=== PATIENT | female | born 1980 | race Caucasian/White ===

== ENCOUNTER 2019-10-14 10:03 | Emergency (ER) | payer MEDICAID, OTHER ==
[~2019-10-14] VITALS: Ht 165.1 cm; Wt 68.2 kg
[2019-10-14 10:57] LABS: BASOPHILS # (AUTO) 0.1 X10'3 (0-0.2); BASOPHILS % (AUTO) 0.8 % (0-1); EOSINOPHILS # (AUTO) 0.1 X10'3 (0-0.9); EOSINOPHILS % (AUTO) 1.2 % (0-6); HEMATOCRIT 43.5 % (35.0-45.0); HEMOGLOBIN 14.8 g/dl (12.0-16.0); LYMPHOCYTES % (AUTO) 18.3 % (21-51); MEAN CORPUSCULAR HEMOGLOBIN 32.2 PG (27.0-31.0); MEAN CORPUSCULAR HGB CONC 34.1 g/dL (33.0-36.5); MEAN CORPUSCULAR VOLUME 94.3 FL (78-98); MEAN PLATELET VOLUME 8.5 FL (7.4-10.4); MONOCYTES # (AUTO) 0.6 X10'3 (0-0.9); MONOCYTES % (AUTO) 5.5 % (2-12); NEUTROPHILS # (AUTO) 8.3 X10'3 (1.8-7.7); NEUTROPHILS % (AUTO) 74.2 % (42-75); PLATELET COUNT 316 X10'3 (140-440); RED BLOOD COUNT 4.61 X10'6 (4.20-5.60); RED CELL DISTRIBUTION WIDTH 13.4 % (11.5-14.5); WHITE BLOOD COUNT 11.2 X10'3 (4.5-11.0)
[2019-10-14 10:57] LABS: COLOR,URINE STRAW (Yellow); GLUCOSE, URINE NEGATIVE (Neg); KETONES,URINE NEGATIVE (Neg); LEUKOCYTE ESTERASE ,URINE NEGATIVE (Neg); NITRITES, URINE NEGATIVE (Neg); OCCULT BLOOD,URINE MODERATE (Neg); PROTEIN,URINE NEGATIVE (Neg); URINE HCG NEGATIVE (NEG); UROBILINOGEN,URINE 0.2 E.U/dL (0.2-1.0)
[2019-10-14] MEDS ORDERED: normal saline 1000ML IV soln IVB ONE (11:15)
[2019-10-14] MEDS ORDERED: ketorolac tromethamine 15mg/ml inj. IV ONE (11:15)
[2019-10-14 11:17] LABS: ALANINE AMINOTRANSFERASE 21 U/L (12-78); ALBUMIN/GLOBULIN RATIO 1.1 (1.1-1.5); ALKALINE PHOSPHATASE 126 IU/L (46-116); ANION GAP 9 (8-16); ASPARTATE AMINO TRANSFERASE 25 U/L (10-37); BILIRUBIN,TOTAL 0.3 MG/DL (0.1-1.0); BLOOD UREA NITROGEN 12 MG/DL (7-18); BUN/CREATININE RATIO 12.6 (6.6-38.0); CALCIUM 9.6 MG/DL (8.5-10.1); CHLORIDE 103 MMOL/L (99-107); CREATININE 0.95 MG/DL (0.40-0.90); GLUCOSE 105 MG/DL (70-104); LIPASE 160 U/L (73-393); SODIUM 136 MMOL/L (135-145); TOTAL CARBON DIOXIDE 23.9 MMOL/L (24-32); TOTAL PROTEIN 7.8 G/DL (6.4-8.2); eGFR 65 ML/MIN
[2019-10-14 11:24] LABS: CLARITY,URINE SLIGHTLY CLOUDY (Clear); UA COLLECTION TYPE CLN CATCH MIDSTREAM
[2019-10-14 11:25] LABS: BACTERIA,URINE NONE SEEN /HPF (Neg); SQUAMOUS EPITHELIAL CELL,UR MODERATE /LPF (FEW); WBC,URINE 0-4 /HPF (0-4)
[2019-10-14] MEDS ORDERED: HYDROcodone/acetaminophen 5mg/325mg tablet PO ONE (12:25)
[2019-10-14] MEDS ORDERED: IBUP-1985 PO (12:32)
[2019-10-14] MEDS ORDERED: ONDA4TAB6 PO (12:32)
[2019-10-14 12:51] VITALS: BP 132/98
== END 2019-10-14 12:55 | disposition home or self-care (01) ==
LOC: ER 10:03
DX: R10.31 Right lower quadrant pain (principal); R31.9 Hematuria, unspecified; R11.0 Nausea; K21.9 Gastro-esophageal reflux disease without esophagitis; Z90.710 Acquired absence of both cervix and uterus; Z98.890 Other specified postprocedural states; Z88.5 Allergy status to narcotic agent; Z91.040 Latex allergy status; Z79.899 Other long term (current) drug therapy
CPT/HCPCS: 36415; 74176; 80053; 81001; 81025; 83690; 85025; 96374; 99284; J1885; J7030

== ENCOUNTER 2019-11-11 07:34 | Emergency (ER) | payer MEDICAID ==
[~2019-11-11] VITALS: Ht 165.1 cm; Wt 67.0 kg
[~2019-11-11 07:34] MED LIST: IBUP-1985 PO; ONDA4TAB6 PO
[2019-11-11 07:35] VITALS: BP 100/57
[2019-11-11 07:57] LABS: CLARITY,URINE SLIGHTLY CLOUDY (Clear); COLOR,URINE YELLOW (Yellow); GLUCOSE, URINE NEGATIVE (Neg); KETONES,URINE NEGATIVE (Neg); LEUKOCYTE ESTERASE ,URINE MODERATE (Neg); NITRITES, URINE NEGATIVE (Neg); OCCULT BLOOD,URINE MODERATE (Neg); PROTEIN,URINE NEGATIVE (Neg); UROBILINOGEN,URINE 0.2 E.U/dL (0.2-1.0)
[2019-11-11 07:58] LABS: UA COLLECTION TYPE CLN CATCH MIDSTREAM
[2019-11-11] MEDS ORDERED: phenazopyridine 100mg tablet PO ONE (08:00)
[2019-11-11] MEDS ORDERED: ibuprofen tablet 400 MG TABLET PO ONE (08:00)
[2019-11-11] MEDS ORDERED: ibuprofen 200mg tablet PO ONE (08:05)
[2019-11-11 08:06] LABS: BACTERIA,URINE FEW /HPF (Neg); MUCUS STRANDS MODERATE /LPF (Neg); RBC,URINE 0-2 /HPF (0-2); SQUAMOUS EPITHELIAL CELL,UR FEW /LPF (FEW); WBC CLUMPS,URINE MODERATE /HPF (NEGATIVE); WBC,URINE TNTC /HPF (0-4)
[2019-11-11 08:14] LABS: URINE HCG NEGATIVE (NEG)
[2019-11-11] MEDS ORDERED: ONDA4TAB12 PO (08:43)
[2019-11-11] MEDS ORDERED: PHEN-786 PO (08:43)
[2019-11-11] MEDS ORDERED: CEPH500C5 PO (08:43)
[2019-11-11] MEDS ORDERED: cephalexin 250mg capsule PO ONE (08:45)
== END 2019-11-11 09:03 | disposition home or self-care (01) ==
LOC: ER 07:34
DX: N39.0 Urinary tract infection, site not specified (principal); K21.9 Gastro-esophageal reflux disease without esophagitis; F17.210 Nicotine dependence, cigarettes, uncomplicated; Z90.710 Acquired absence of both cervix and uterus; Z98.890 Other specified postprocedural states; Z88.5 Allergy status to narcotic agent; Z91.040 Latex allergy status; Z79.899 Other long term (current) drug therapy
CPT/HCPCS: 81001; 81025; 87088; 99284

== ENCOUNTER 2020-08-14 12:34 | Emergency (ER) | payer MEDICAID, OTHER ==
[~2020-08-14] VITALS: Ht 162.6 cm; Wt 63.6 kg
[~2020-08-14 12:34] MED LIST changes: +CEPH-585 PO; +ONDA4TAB12 PO; +PHEN-786 PO
[2020-08-14] MEDS ORDERED: LIDOcaine 1% 30ml preserv. free vial IJ ONE (14:00)
--- NOTE | 2020-08-14 14:19 | NUR ---
ADAN GALO AWARE THAT MEDICATION AND EQUIPMENT AT BEDSIDE
--- NOTE | 2020-08-14 14:43 | NUR ---
ADAN GALO IN ROOM
[2020-08-14] MEDS ORDERED: CYCL-1 PO (15:13)
[2020-08-14 15:42] VITALS: BP 118/65
== END 2020-08-14 15:35 | disposition home or self-care (01) ==
LOC: ER 12:35
DX: M25.511 Pain in right shoulder (principal); K21.9 Gastro-esophageal reflux disease without esophagitis; Z88.8 Allergy status to other drugs, medicaments and biological substances; Z91.040 Latex allergy status; Z79.2 Long term (current) use of antibiotics; Z79.899 Other long term (current) drug therapy; Z98.891 History of uterine scar from previous surgery; Z90.710 Acquired absence of both cervix and uterus
CPT/HCPCS: 20552; 99284

== ENCOUNTER 2021-05-06 12:21 | Emergency (ER) | payer MEDICAID, OTHER ==
[~2021-05-06] VITALS: Ht 165.1 cm; Wt 68.2 kg
[~2021-05-06 12:21] MED LIST changes: -CEPH-585 PO; +CYCL-1 PO
[2021-05-06 13:12] VITALS: BP 117/79
[2021-05-06] MEDS ORDERED: VALA10002 PO (13:44)
[2021-05-06] MEDS ORDERED: GABA300C PO (13:44)
[2021-05-06] MEDS ORDERED: HYDR-3972 PO (13:44)
== END 2021-05-06 14:47 | disposition home or self-care (01) ==
LOC: ER 12:22
DX: B02.9 Zoster without complications (principal); R21 Rash and other nonspecific skin eruption; K21.9 Gastro-esophageal reflux disease without esophagitis; Z90.710 Acquired absence of both cervix and uterus; Z98.890 Other specified postprocedural states; Z88.5 Allergy status to narcotic agent; Z91.040 Latex allergy status; Z79.899 Other long term (current) drug therapy
CPT/HCPCS: 99283

== ENCOUNTER 2021-06-27 14:40 | Emergency (ER) | payer MEDICAID ==
[~2021-06-27] VITALS: Ht 165.1 cm; Wt 68.2 kg
[~2021-06-27 14:40] MED LIST changes: +GABA300C PO; +VALA10002 PO
[2021-06-27 15:28] VITALS: BP 119/80
--- NOTE | 2021-06-27 16:16 | NUR ---
SECOND CALL TO TRIAGE, NOT IN LOBBY
[2021-06-27] MEDS ORDERED: FLUC150T22 PO (16:45)
== END 2021-06-27 16:38 | disposition home or self-care (01) ==
LOC: ER 14:41
DX: J06.9 Acute upper respiratory infection, unspecified (principal); Z20.822 Contact with and (suspected) exposure to COVID-19; R05.9 Cough, unspecified; R53.83 Other fatigue; K21.9 Gastro-esophageal reflux disease without esophagitis; F17.200 Nicotine dependence, unspecified, uncomplicated; Z90.710 Acquired absence of both cervix and uterus; Z98.890 Other specified postprocedural states; Z88.5 Allergy status to narcotic agent; Z91.040 Latex allergy status; Z79.2 Long term (current) use of antibiotics; Z79.899 Other long term (current) drug therapy
CPT/HCPCS: 71045; 87635; 99284; C9803